=== PATIENT | male | born 1935 | race Caucasian/White ===

== ENCOUNTER → 2020-08-29 | Outpatient (REF) | payer MEDICARE | LOC: M LAB REF 18:44 | PROVIDERS: ATTEND Physician Assistant | DX: C44.229 Squamous cell carcinoma of skin of left ear and external auricular canal (principal); C44.42 Squamous cell carcinoma of skin of scalp and neck | CPT/HCPCS: 11102; 17110; 69100; 88305; G0463 ==

== ENCOUNTER → 2020-12-23 | Outpatient (REF) | payer MEDICARE | LOC: M LAB REF 17:20 | PROVIDERS: ATTEND Nurse Practitioner Family | DX: C44.519 Basal cell carcinoma of skin of other part of trunk (principal) | CPT/HCPCS: 11102; 88305; G0463 ==

== ENCOUNTER → 2021-06-29 | Outpatient (REF) | payer MEDICARE | LOC: M SFHCDERM 18:49 | PROVIDERS: ATTEND Physician Assistant | DX: D04.22 Carcinoma in situ of skin of left ear and external auricular canal (principal); L57.0 Actinic keratosis ==

== ENCOUNTER → 2024-04-22 | Outpatient (REF) | payer MEDICARE, OTHER | LOC: M SFHCDERM 17:37 | PROVIDERS: ATTEND Physician Assistant | DX: C44.42 Squamous cell carcinoma of skin of scalp and neck (principal) ==

== ENCOUNTER → 2024-05-15 | Outpatient (CLI) | payer MEDICARE ==
[~2024-05-15] MED LIST: ATOR40TA75 PO; BUDE10.7 INH; ELIQ2.5T PO; FLOM0.4C39 PO; LOSA-527 PO; PEPC1TAB5 PO; POTA1TAB21 PO; SITA50TAB PO; VALS1TAB66 PO
== END ==
LOC: M ONCR 09:30
PROVIDERS: ATTEND General Practice
DX: C44.42 Squamous cell carcinoma of skin of scalp and neck (principal); Z85.46 Personal history of malignant neoplasm of prostate; Z92.3 Personal history of irradiation; Z90.49 Acquired absence of other specified parts of digestive tract; Z79.51 Long term (current) use of inhaled steroids; Z79.01 Long term (current) use of anticoagulants; Z79.899 Other long term (current) drug therapy; Z79.84 Long term (current) use of oral hypoglycemic drugs